=== PATIENT | male | born 1985 | race Asian ===

== ENCOUNTER 2016-08-22 08:29 | Outpatient (CLI) | payer OTHER ==
[~2016-08-22 08:29] MED LIST: ALLO100T22 PO; BISACODYL5 M1 PO; DIOVAN320 MG PO; DIPHENHYDRAM25 MG OR; DOXE25CA18 PO; FOSRENOL500 MG PO; FURO40TA93 PO; HYDRALAZINE100 MG PO; LOPRESSOR100 MG PO; LORAZEPAM1 MG OR; PRINIVIL10 MG OR; QUETIAPINE100 MG OR; QUETIAPINE200 MG OR; QUETIAPINE300 MG OR; QUETIAPINE400 MG OR; RISPERDAL3 MG PO; SENSIPAR60 MG OR; SYNTHROID175 MCG PO
== END 2016-08-22 23:37 | disposition home or self-care (01) ==
LOC: US 08:29
DX: N18.6 End stage renal disease (principal)

== ENCOUNTER 2017-01-30 08:02 | Outpatient (CLI) | payer OTHER | END 2017-01-30 19:04 | disposition home or self-care (01) | LOC: US 08:02 | DX: D75.1 Secondary polycythemia (principal) ==

== ENCOUNTER 2018-01-02 08:12 | Outpatient (CLI) | payer OTHER | END 2018-01-02 22:07 | disposition home or self-care (01) | LOC: LAB 08:12 | DX: D64.89 Other specified anemias (principal) | CPT/HCPCS: 85014; 85018 ==

== ENCOUNTER 2020-05-03 14:04 | Outpatient (CLI) | payer OTHER | END 2020-05-03 23:31 | disposition home or self-care (01) | LOC: LAB 14:04 | DX: E87.5 Hyperkalemia (principal) | CPT/HCPCS: 84132 ==

== ENCOUNTER 2021-04-20 00:02 | Emergency (ER) | payer OTHER ==
[~2021-04-20] VITALS: Ht 190.5 cm; Wt 117.9 kg
[2021-04-20 00:02] VITALS: TEMP 98.1
[2021-04-20 00:59] LABS: PLATELET COUNT 166 K/uL (142-355)
[2021-04-20 01:22] LABS: POTASSIUM 5.8 mmol/L (3.6-5.2)
[2021-04-20 02:07] LABS: POTASSIUM 5.3 mmol/L (3.6-5.2)
[2021-04-20 08:57] VITALS: BP 164/73
== END 2021-04-20 08:57 | disposition short-term general hospital (02) ==
LOC: ED 00:09
PROVIDERS: Emergency Medicine Emergency Medical Services
DX: T82.838A Hemorrhage due to vascular prosthetic devices, implants and grafts, initial encounter (principal); S51.842A Puncture wound with foreign body of left forearm, initial encounter; N18.9 Chronic kidney disease, unspecified; Z11.52 Encounter for screening for COVID-19; X58.XXXA Exposure to other specified factors, initial encounter; Y92.098 Other place in other non-institutional residence as the place of occurrence of the external cause
CPT/HCPCS: 36415; 36416; 80048; 80053; 83735; 85027; 85610; 86850; 86900; 86901; 87635; 93005; 96360; 96361; 96375; 99284; J2060; U0003

== ENCOUNTER 2021-11-21 11:20 | Emergency (ER) | payer OTHER ==
[~2021-11-21] VITALS: Ht 190.5 cm; Wt 117.9 kg
[2021-11-21 11:30] VITALS: TEMP 97.8
[2021-11-21 13:31] LABS: POTASSIUM 3.6 mmol/L (3.6-5.2)
[2021-11-21 13:37] LABS: PLATELET COUNT 91 K/uL (142-355)
[2021-11-21 14:20] VITALS: BP 186/90
== END 2021-11-21 15:57 | disposition short-term general hospital (02) ==
LOC: ED 11:20
PROVIDERS: Emergency Medicine Emergency Medical Services
DX: R22.32 Localized swelling, mass and lump, left upper limb (principal); R22.2 Localized swelling, mass and lump, trunk; T82.591A Other mechanical complication of surgically created arteriovenous shunt, initial encounter; Y82.8 Other medical devices associated with adverse incidents; Y92.89 Other specified places as the place of occurrence of the external cause; N18.6 End stage renal disease; Z99.2 Dependence on renal dialysis
CPT/HCPCS: 80048; 85027; 99283

== ENCOUNTER 2022-08-09 10:45 | Outpatient (CLI) | payer OTHER ==
[2022-08-09 11:18] LABS: PARTIAL THROMBOPLASTIN TIME 34.8 SECONDS (24.5-33.6)
== END 2022-08-09 20:03 | disposition home or self-care (01) ==
LOC: LAB 10:45
PROVIDERS: ATTEND Internal Medicine Nephrology
DX: Z51.81 Encounter for therapeutic drug level monitoring (principal); Z79.899 Other long term (current) drug therapy
CPT/HCPCS: 85610; 85730; 86022

== ENCOUNTER 2022-12-20 11:08 | Outpatient (CLI) | payer OTHER ==
[2022-12-20 11:30] LABS: PLATELET COUNT 84 K/uL (142-355)
== END 2022-12-20 18:54 | disposition home or self-care (01) ==
LOC: LABW 11:08
PROVIDERS: ATTEND Internal Medicine Medical Oncology
DX: D61.818 Other pancytopenia (principal); B34.3 Parvovirus infection, unspecified
CPT/HCPCS: 36415; 82607; 82746; 83615; 85027; 85044; 86747